=== PATIENT | male | born 1970 | race Caucasian/White ===

== ENCOUNTER 2024-06-20 20:37 | Emergency (ER) | payer OTHER, SELFPAY ==
--- NOTE | 2024-06-20 20:39 | ED.GENMED ---
ED Provider Triage
-
Patient seen by provider in Triage?: Seen in Triage
Attestation: A medical screening examination has been initiated by a qualified medical provider. Based on the assessment performed at this time, it has been determined that an emergent medical condition may exist and the patient has been informed
that further medical evaluation and possible additional diagnostic testing may be needed.
HPI: 53-year-old male presenting to the ER at the request of primary care provider for chest pain that began earlier this morning on awakening. Patient describes more of a nagging discomfort lasting throughout the day and constant. No other
associated symptoms. Family history of mother and father both having heart disease. Patient recently diagnosed with hypertension but not on any medications currently. Nonischemic EKG done in triage. Labs ordered.
GENERAL: Alert , in no apparent distress
EYE: No visual abnormalities.
NECK: Trachea midline
ENT: No visible abnormalities.
LUNGS: No acute respiratory distress
NEUROLOGICAL: Alert and oriented
SKIN: Skin intact. No visible changes.
MUSCULOSKELETAL: Moving extremities normally
PSYCH: Normal and appropriate interaction.
This is a medical evaluation conducted in person to initiate diagnostic evaluation and provide initial therapeutics. Please see further documentation by the treating clinician.
History of Present Illness
General
Chief Complaint: Chest Pain
Source: patient
Time Seen by Provider: 06/20/24 22:51
History of Present Illness
History of Present Illness:
54-year-old male with past medical history of hypertension managed with diet and exercise presenting to the emergency department for evaluation at the request of primary care provider after patient awoke this morning with some mild chest discomfort
described to be along the left side of his chest, very mild, dull aching sensation, nonradiating, not worse with any exertion and no other associated symptoms. Patient states that he went about his day and at times throughout the day was not
noticing the pain but when he was thinking about it said he felt as if there was some mild discomfort. Denies any history of similar but both mother and father have a history of heart disease and due to this primary care wanted patient evaluated in
the ER. Patient himself has never seen cardiology stress test before. Social history was unremarkable for cigarettes or tobacco use. Patient denies any recent travel, recent antibiotics, recent illnesses. No DVT/PE risk factors.
Past History
Past History
ED Past Medical History: HTN
ED Past Surgical History: None
Social History
Tobacco: Non-smoker
Alcohol: Occasional
Drug: None
Personal:
Living: with family
Employment: Employed
Review of Systems
Review of Systems
All Other Systems: ROS reviewed and negative except as documented in HPI and ROS
Phy Exam
Physical Exam
Physical Exam:
GENERAL: Alert , in no apparent distress
EYE: clear conjunctiva b/l
HEAD: NCAT
ENT: o/p clr, mmm.
CARDIAC: Regular rate and rhythm .
LUNGS: Clear breath sounds bilaterally, no acute respiratory distress, no wheezes/rales/rhonchi
ABDOMEN: Soft, without focal tenderness, no r/g, no cvat
NEUROLOGICAL: Alert and oriented
SKIN: Warm and dry, skin intact.
MUSCULOSKELETAL: No edema, well perfused.
PSYCH: Normal and appropriate interaction.
Scores
Heart Failure Risk
Heart Failure Risk Score: Not Applicable
Heart Score for Chest Pain Patients
STEMI patient?: No
History: Slightly or Non-Suspicious
ECG: Normal
Age: >45 - <65 years
Risk Factors: 1 or 2 Risk Factors
Troponin: </= Normal Limit
Heart Score for Chest Pain Patients: 2
Heart Score Risk: 2.5% MACE over next 6 weeks
Withdrawal Assessment of Alcohol
Withdrawal Assessment Completed?: Not applicable
Course
Orders/Labs/Results
Orders:
Orders
06/20/24 20:39
ECG [Electrocardiogram (*1)] Urgent
Reason for Study: Chest Pain
EKG- Treatment ONCE
06/20/24 20:46
CR Chest - 2 Views Urgent
Comment:
Reason For Exam: chest pain
06/20/24 20:50
Basic Metabolic Panel Urgent
Complete Blood Count/With Diff Urgent
Troponin I Urgent
Abnormal Lab Results
06/20/24
20:50
RBC 4.43 L 10^6/uL
(4.70-6.10)
MCH 31.8 H pg
(27.0-31.0)
Absolute Monos (auto) 0.9 H 10^3/uL
(0.1-0.6)
Monocytes % 11.2 H %
(1.7-9.3)
BUN 22 H mg/dl
(9-20)
Glucose 102 H mg/dl
(70-99)
06/20/24 20:50
06/20/24 20:50
Vital Signs
Initial and Last Documented VS:
Initial Vital Signs
Temp Pulse Resp BP Pulse Ox
97.9 F 97 15 165/118 99
06/20/24 20:40 06/20/24 20:40 06/20/24 20:40 06/20/24 20:40 06/20/24 20:40
Last Documented Vital Signs
Temp Pulse Resp BP Pulse Ox
97.9 F 72 18 147/99 99
06/20/24 20:40 06/20/24 22:46 06/20/24 22:46 06/20/24 22:46 06/20/24 22:46
MDM/Problems Addressed
Differential Diagnosis Includes:
Angina, pleurisy, costochondritis, pulmonary embolism considered however patient does not have risk factors for this, less concern for infectious etiology, myocarditis, pericarditis
MDM/Problems Addressed:
53-year-old male presenting to the ER for mild chest discomfort that began earlier today, not any worse with exertion and states at this time does not have the chest pain/discomfort. No fevers or infectious symptoms recently. No recent travel.
Patient does not have any DVT/PE risk factors. His only risk factors for CAD are both parents with history of similar. Patient has never seen commodity industry analyst. He does have elevated blood pressure here. Will check labs, chest x-ray and EKG.
Reassessment following
Chronic conditions affecting care: HTN
Acute Exacerbation and/or Progression of Chronic Illness: HTN
*Radiology
Radiology exam reviewed: radiology read reviewed (Normal chest x-ray)
*Pulse Oximetry
Patient hypoxic: no
*EKG
Comparison EKG: no comparison EKG present
Heart Rate: 69
Rate: normal
Rhythm: sinus
Freeman: normal axis
Ischemia: no ischemia
*Critical Care Note
Total Time (30-74mins, 75-104mins- exclusive of procedures): Not Applicable
Patient Management
Escalation/DeEscalation of care consider admission/obs:
Patient's workup is unremarkable for any acute etiologies. Chest x-ray unremarkable, EKG normal and negative troponin. Patient is stable for discharge home. Will refer to the chest pain hotline for close follow-up. Patient aware of return
precautions but otherwise stable for discharge home.
ED Attending Note
-
Portions of this chart may have been created with voice recognition software.� Occasional wrong word or��sound alike� substitutions may have occurred due to the inherent limitations of voice recognition software.
Discharge Plan
Departure
Patient Disposition: Home (Routine Discharge)
Date of Disposition: 06/20/24
Time of Disposition: 22:50
Patient with high blood pressure during this ER visit?: Yes
Discharge Problem:
Chest pain
Instructions: Chest Pain CBC Follow Up
Prescriptions:
No Action
No Current Medications
0
Referrals:
Nik Montiel MD [Active] - (Cardiology)
Interventions
Interventions:
*Risk Screen - Suicide Last Done: 06/20/24 20:40
*General Assessment Last Done: 06/20/24 20:40
*Neglect/Abuse Screening Last Done: 06/20/24 20:40
ED- Fall Risk Assessment Last Done: 06/20/24 22:45
*ED COVID-19 Vaccine History Last Done: 06/20/24 22:42
*Nursing Disposition Last Done: 06/20/24 22:48
ED- Cardiac Assessment Last Done: 06/20/24 22:45
Discharge Date and Time
Print Language: IRISH
[2024-06-20 20:40] VITALS: BP 165/118
[2024-06-20 20:56] LABS: % Basophils 0.4 % (0-2); % Eosinophils 2.8 % (0-6); % Immature Granulocytes 0.1 % (0-0.5); % Monocytes 11.2 % (1.7-9.3); % Neutrophils 62.5 % (42.2-75.2); Absolute Eosinophils 0.2 10^3/uL (0-0.7); Absolute Lymphocytes 1.7 10^3/uL (1.2-3.4); Absolute Monocytes 0.9 10^3/uL (0.1-0.6); Absolute Neutrophils 4.7 10^3/uL (1.4-6.5); Hematocrit 40.2 % (39.0-52.0); Hemoglobin 14.1 g/dL (13.0-18.0); Mean Corp Hgb Conc. 35.1 g/dL (33.0-37.0); Mean Corpuscular Hgb 31.8 pg (27.0-31.0); Mean Corpuscular Volume 90.7 fL (80.0-94.0); Mean Platelet Volume 9.2 fL (7.4-10.4); Nucleated Red Blood Cells % 0 % (-); Platelet Count 280 10^3/uL (130-400); Red Blood Cell Count 4.43 10^6/uL (4.70-6.10); Red Cell Dist. Width 11.9 % (11.5-14.5); White Blood Cell Count 7.6 10^3/uL (4.8-10.8)
[2024-06-20 21:13] LABS: Blood Urea Nitrogen 22 mg/dl (9-20); Calcium 9.4 mg/dl (8.4-10.2); Carbon Dioxide 29 mmol/L (22-30); Chloride 101 mmol/L (98-107); Glucose 102 mg/dl (70-99); Potassium 4.3 mmol/L (3.5-5.1); Sodium 138 mmol/L (135-145); eGFR > 60.00
[2024-06-20 21:23] LABS: Troponin I < 0.012 ng/ml
[2024-06-20 22:46] VITALS: BP 147/99
== END 2024-06-20 22:55 | disposition home or self-care (01) ==
LOC: EMR 20:37
PROVIDERS: Physician Assistant Medical; EMERGENCY PHYSICIAN Student in an Organized Health Care Education/Training Program
DX: R07.89 Other chest pain (principal); I10 Essential (primary) hypertension; Z82.49 Family history of ischemic heart disease and other diseases of the circulatory system
CPT/HCPCS: 99283; 71046; 80048; 84484; 85025; 93005

== ENCOUNTER → 2024-07-18 09:12 | Outpatient (REF) | payer OTHER, SELFPAY | LOC: RCS 09:12 | PROVIDERS: ATTENDING PHYSICIAN Internal Medicine Cardiovascular Disease; FAMILY PHYSICIAN Nurse Practitioner | DX: R07.89 Other chest pain (principal); R06.09 Other forms of dyspnea | CPT/HCPCS: 93306 ==

== ENCOUNTER → 2024-07-19 07:56 | Outpatient (REF) | payer OTHER, SELFPAY ==
--- NOTE | 2024-07-19 09:03 | CARDSERVDEF ---
Echocardiogram with Definity completed after protocol screening completed. Allergies verified.
Patent IV site: __new site 1st attempt 22P LAC___
IV site flushed with 0.9% NaCl pre and post administration.
Diluted bolus method utilized to enhance visualization of ventricular win.
Total volume given: _2.0 and 2.5___ mL
Patient tolerated all procedures well without complications.
site dcd at completion of test, no issues.
== END ==
LOC: RCS 07:56
PROVIDERS: ATTENDING PHYSICIAN Internal Medicine Cardiovascular Disease; FAMILY PHYSICIAN Nurse Practitioner
DX: R07.89 Other chest pain (principal)
CPT/HCPCS: 93017; 93350; Q9957

== ENCOUNTER → 2025-07-08 11:30 | Outpatient (REF) | payer OTHER, SELFPAY | LOC: RAD 11:30 | PROVIDERS: ATTENDING PHYSICIAN Physician Assistant | DX: R05.3 Chronic cough (principal) | CPT/HCPCS: 71046 ==